=== PATIENT | male | born 1990 | race Caucasian/White ===

== ENCOUNTER 2019-04-30 11:07 | Emergency (ER) | payer OTHER ==
[~2019-04-30] VITALS: Ht 190.5 cm; Wt 99.8 kg
[~2019-04-30 11:07] MED LIST: ABILIFY10 MG PO; DESYREL150 MG PO; NORCO 5-325 TA1 EACH PO
[2019-04-30] MEDS ORDERED: ZOLOFT100 MG PO (11:18)
[2019-04-30] MEDS ORDERED: REMERON15 MG PO (11:18)
[2019-04-30] MEDS ORDERED: DEPAKOTE500 MG PO (11:18)
[2019-04-30] MEDS ORDERED: ZYPREXA15 MG PO (11:19)
[2019-04-30] MEDS ORDERED: NAPROSYN500 MG PO (11:19)
[2019-04-30 13:13] VITALS: BP 124/79
== END 2019-04-30 13:13 | disposition home or self-care (01) ==
LOC: M.ERS 11:07
DX: G43.909 Migraine, unspecified, not intractable, without status migrainosus (principal); F17.210 Nicotine dependence, cigarettes, uncomplicated; Z88.0 Allergy status to penicillin; Z88.1 Allergy status to other antibiotic agents